=== PATIENT | female | born 1990 | race American Indian/Alaskan Native ===

== ENCOUNTER 2022-05-09 05:13 | Emergency (ER) | payer MEDICAID ==
[2022-05-09 05:18] VITALS: BP 162/110
== END 2022-05-09 10:40 | disposition left against medical advice (07) ==
LOC: ED 05:13
DX: K08.89 Other specified disorders of teeth and supporting structures (principal); Z53.21 Procedure and treatment not carried out due to patient leaving prior to being seen by health care provider